=== PATIENT | female | born 1940 | race Caucasian/White ===

== ENCOUNTER → 2016-10-15 | Outpatient (CLI) | payer OTHER ==
[~2016-10-15] MED LIST: AMIO200 PO; AMLO5TAB96 PO; ATOR10 PO; FLON0.053; WARF2.5 PO
--- NOTE | 2016-10-16 10:19 | RSPPFT ---
DATE OF PROCEDURE: 10/15/16 COMMENTS: VOLUMES DYNAMIC: FVC mildly reduced; FEV1 moderately reduced. STATIC: TLC mildly reduced; VTG and FRC normal. FLOWS: FEV1% moderately reduced; FEF 25-75 severely reduced. DIFFUSION: Moderately reduced. FLOW VOLUME LOOP; Pattern of variable intrathoracic airways obstruction. 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 There is also a mild restrictive defect which required clinical correlation. There is no significant hyperinflation. Airways resistance is increased. There is improvement post-bronchodilator.
== END ==
LOC: PHRSP 07:34
DX: I71.6 Thoracoabdominal aortic aneurysm, without rupture (principal); Z01.811 Encounter for preprocedural respiratory examination
CPT/HCPCS: 94060; 94726; 94729